=== PATIENT | male | born 1985 | race Caucasian/White ===

== ENCOUNTER 2019-03-24 17:08 | Emergency (ER) | payer SELFPAY ==
[2019-03-24] MEDS ORDERED: PENICILLIN V POTASSIUM 250 MG TABLET PO ONE (18:23)
--- NOTE | 2019-03-24 18:24 | ER Document Report ---
HPI - HPI Time Seen by Provider: 03/24/19 18:07 Pain Level: 2 Context: Patient is a 34-year-old male who presents to the emergency department with a toothache to tooth #30. The patient has poor dentition and states that he has had teeth problems for the past 10 years. His toothache started yesterday. He states that he took some ibuprofen yesterday, but he has a history of stomach ulcers and he felt that the ibuprofen made his stomach worse. Patient states that the lidocaine that he was given before does not work. Patient states that usually antibiotics help him. - CONSTITUTIONAL Constitutional: REPORTS: Chills. DENIES: Fever - EENT Notes: Tooth pain to tooth #31 - RESPIRATORY Respiratory: DENIES: Trouble Breathing, Coughing - GASTROINTESTINAL Gastrointestinal: DENIES: Nausea, Patient vomiting - MUSCULOSKELETAL Musculoskeletal: DENIES: Extremity pain - DERM Skin Color: Normal Skin Problems: None Past Medical History - General Information source: Patient - Social History Smoking Status: Current Every Day Smoker Chew tobacco use (# tins/day): No Frequency of alcohol use: None Drug Abuse: None Family History: Reviewed & Not Pertinent Patient has suicidal ideation: No Patient has homicidal ideation: No Neurological Medical History: Reports: Hx Migraine Renal/ Medical History: Denies: Hx Peritoneal Dialysis GI Medical History: Reports: Hx Ulcer Vertical Provider Document - CONSTITUTIONAL Agree With Documented VS: Yes Exam Limitations: No Limitations General Appearance: No Apparent Distress - INFECTION CONTROL TRAVEL OUTSIDE OF THE [place] IN LAST 30 DAYS: No - HEENT HEENT: Atraumatic, Normocephalic, PERRLA Mouth Diagram: 1 - dental carry noted. - RESPIRATORY Respiratory: Breath Sounds Normal, No Respiratory Distress - CARDIOVASCULAR Cardiovascular: Regular Rate, Regular Rhythm - MUSCULOSKELETAL/EXTREMETIES Musculoskeletal/Extremeties: FROM - NEURO Level of Consciousness: Awake, Alert, Appropriate Motor/Sensory: No Motor Deficit, No Sensory Deficit - DERM Integumentary: Warm, Dry, No Rash Course - Re-evaluation Re-evalutation: 03/24/19 18:24 Patient's physical exam and history is most consistent with a infected tooth. Patient is able to swallow, no facial swelling noted, airways pain, vital signs are normal. I do not suspect Rob's angina, peritonsilar abscess, or airway obstruction. The patient will be started on oral antibiotics. I have given the patient education on their antibiotics. Patient was given instructions to follow-up with a dentist this week. Return precautions were given. Verbal discharge instructions were given. Patient verbalized understanding. Patient is stable for discharge. - Vital Signs Vital signs: Temp Pulse Resp BP Pulse Ox 98.1 F 76 18 144/86 H 97 03/24/19 17:12 03/24/19 17:12 03/24/19 17:12 03/24/19 17:12 03/24/19 17:12 Discharge - Discharge Clinical Impression: Toothache Condition: Stable Disposition: HOME, SELF-CARE Instructions: Penicillin V K ([facility]), Toothache ([facility]) Additional Instructions: You have been seen in the emergency department for a toothache. You may take Tylenol 1000 mg every 6 hours as needed for the pain. You have also been pres cribed antibiotics. Please take the antibiotics as prescribed, even if you start to feel better. If you develop a fever greater than 100.4 F, or have any symptoms that are worrisome to you, please return to the emergency department. Please follow-up with a dentist this week in regards to your visit. Prescriptions: Penicillin V Potassium [Penicillin Vk 250 mg Tablet] 500 mg PO BID #40 tablet Referrals: SIMÓN DUTTON MD [Primary Care Provider] - Follow up as needed
[2019-03-24 18:33] VITALS: BP 136/90
== END 2019-03-24 18:32 | disposition home or self-care (01) ==
LOC: ER 17:08
DX: K02.9 Dental caries, unspecified (principal); K08.89 Other specified disorders of teeth and supporting structures; F17.200 Nicotine dependence, unspecified, uncomplicated; Z87.11 Personal history of peptic ulcer disease
CPT/HCPCS: 99282

== ENCOUNTER 2019-04-08 02:21 | Emergency (ER) | payer SELFPAY ==
[2019-04-08] MEDS ORDERED: BESIFLOXACIN HCL 0.6% OPH SUSP 5 ML BOTTLE OS ONE (03:23)
[2019-04-08] MEDS ORDERED: HYDROCODONE/ACETAMINOPHEN 5-325 MG (6 TAB/ER DISP) PO PRN (03:24)
[2019-04-08] MEDS ORDERED: BESIFLOXACIN HCL 0.6% OPH SUSP 5 ML BOTTLE ONE (03:41)
--- NOTE | 2019-04-08 04:04 | ER Document Report ---
ED ENT - General Chief Complaint: Foreign Body in Eye Stated Complaint: LEFT EYE PAIN Time Seen by Provider: 04/08/19 03:09 Notes: Patient is a 34-year-old male that comes to the emergency department for chief complaint of left eye pain. He states he was cutting concrete board when a piece of something flew into his eye. He states he flushed his eye out thoroughly but he still has a sensation of foreign body and a lot of pain in the left eye. He denies visual loss. He wears contacts, he states he is not wearing them now. He denies any other complaints. TRAVEL OUTSIDE OF THE [place] IN LAST 30 DAYS: No - Related Data Allergies/Adverse Reactions: No Known Allergies Allergy (Verified 03/24/19 17:10) Past Medical History - General Information source: Patient - Social History Smoking Status: Never Smoker Drug Abuse: None Lives with: Family Family History: Reviewed & Not Pertinent Patient has suicidal ideation: No Patient has homicidal ideation: No Neurological Medical History: Reports: Hx Migraine Renal/ Medical History: Denies: Hx Peritoneal Dialysis GI Medical History: Reports: Hx Ulcer - Immunizations Hx Diphtheria, Pertussis, Tetanus Vaccination: Yes Review of Systems - Review of Systems Constitutional: No symptoms reported EENT: See HPI Cardiovascular: No symptoms reported Respiratory: No symptoms reported Gastrointestinal: No symptoms reported Genitourinary: No symptoms reported Male Genitourinary: No symptoms reported Musculoskeletal: No symptoms reported Skin: No symptoms reported Hematologic/Lymphatic: No symptoms reported Neurological/Psychological: No symptoms reported Physical Exam - Vital signs Vitals: Temp Pulse Resp BP Pulse Ox 97.9 F 64 16 121/79 97 04/08/19 02:56 04/08/19 02:56 04/08/19 02:56 04/08/19 02:56 04/08/19 02:56 - Notes Notes: GENERAL: Alert, interacts well. Holding hand over his left eye and appears somewhat uncomfortable. HEAD: Normocephalic, atraumatic. EYES: Pupils equal, round, and reactive to light. Extraocular movements intact. Sclera of the left eye is mildly injected. Eyelids are normal. Eyelashes are normal. No discharge. No superficial foreign body, negative Kaleigh sign. There is a tiny corneal abrasion in the left upper outer quadrant of the left eye. Unremarkable otherwise. Right eye is normal. ENT: Oral mucosa moist, tongue midline. Oropharynx unremarkable. Airway patent. Nares patent, no nasal septal hematoma LUNGS: Clear to auscultation bilaterally, no wheezes, rales, or rhonchi. No respiratory distress. HEART: Regular rate and rhythm. No murmur ABDOMEN: Soft, non-tender. Non-distended. EXTREMITIES: Moves all 4 extremities spontaneously. No edema, normal radial and dorsalis pedis pulses bilaterally. No cyanosis. BACK: no cervical, thoracic, lumbar midline tenderness. No saddle anesthesia, normal distal neurovascular exam. NEUROLOGICAL: Alert and oriented x3. Normal speech. Cranial nerves II through XII grossly intact. PSYCH: Normal affect, normal mood. SKIN: Warm, dry, normal turgor. No rashes or lesions noted. Course - Re-evaluation Re-evalutation: There is no foreign body seen on physical examination. Patient has a tiny corneal abrasion, no other concerning findings noted. No visual loss. Asymptomatic after tetracaine drops. Because of patient's contact use he will be placed on Besivance. Patient states he actually has an casting chipper that he sees and he already called earlier today and has a follow-up appointment in 2 days. He states he will follow-up with them. Discussed return precautions. Patient states understanding and agreement. - Vital Signs Vital signs: Temp Pulse Resp BP Pulse Ox 98.4 F 74 15 154/78 H 97 04/08/19 04:17 04/08/19 04:17 04/08/19 04:17 04/08/19 04:17 04/08/19 02:56 Discharge - Discharge Clinical Impression: Left eye pain Condition: Stable Disposition: HOME, SELF-CARE Instructions: Oral Narcotic Medication ([facility]) Additional Instructions: Your evaluation is consistent with a corneal abrasion. No foreign body is seen. Take the eyedrops as prescribed, 1 drop 3 times a day for 1 week. Follow-up with your casting chipper as we discussed. Return if you worsen including loss of vision, swelling of the eye, severely increased pain, discolored discharge, or any other concerning symptoms. Forms: Return to Work
[2019-04-08] MEDS ORDERED: TETRACAINE HCL 0.5% OPH SOLN 4 ML OS ONE (04:10)
[2019-04-08 04:20] VITALS: BP 154/78
== END 2019-04-08 04:17 | disposition home or self-care (01) ==
LOC: ER 02:21
DX: H57.12 Ocular pain, left eye (principal)
CPT/HCPCS: 99283; J3490

== ENCOUNTER 2020-04-25 02:08 | Emergency (ER) | payer MEDICAID ==
[2020-04-25 03:05] LABS: ABSOLUTE EOSINOPHILS # (AUTO) 0.2 10^3/uL (0.0-0.6); ABSOLUTE LYMPHOCYTES (AUTO) 3.5 10^3/uL (0.5-4.7); ABSOLUTE NEUT (AUTO) 7.1 10^3/uL (1.7-8.2); BASOPHILS % (AUTO) 0.4 % (0-2); EOSINOPHILS % (AUTO) 1.4 % (0-6); HEMATOCRIT 44.9 % (37.9-51.0); HEMOGLOBIN 15.8 g/dL (13.5-17.0); LYMPHOCYTES % (AUTO) 29.7 % (13-45); MEAN CORPUSCULAR HEMOGLOBIN 31.4 pg (27.0-33.4); MEAN CORPUSCULAR HGB CONC 35.2 g/dL (32.0-36.0); MEAN CORPUSCULAR VOLUME 89 fl (80-97); MONOCYTES % (AUTO) 8.2 % (3-13); PLATELET COUNT 286 10^3/uL (150-450); RED BLOOD COUNT 5.04 10^6/uL (4.35-5.55); SEGMENTED NEUTROPHILS % (AUTO) 60.3 % (42-78); TOTAL CELLS COUNTED % (AUTO) 100 %; WHITE BLOOD COUNT 11.7 10^3/uL (4.0-10.5)
[2020-04-25 03:18] LABS: ALBUMIN 4.3 g/dL (3.5-5.0); ALKALINE PHOSPHATASE 55 U/L (38-126); ANION GAP 10 (5-19); ASPARTATE AMINO TRANSFERASE 22 U/L (17-59); BILIRUBIN,DIRECT 0.3 mg/dL (0.0-0.4); BILIRUBIN,TOTAL 0.4 mg/dL (0.2-1.3); BLOOD UREA NITROGEN 11 mg/dL (7-20); CALCIUM 9.6 mg/dL (8.4-10.2); CARBON DIOXIDE 24 mmol/L (22-30); CHLORIDE 104 mmol/L (98-107); CREATINE KINASE 92 U/L (55-170); GLUCOSE 140 mg/dL (75-110); TOTAL PROTEIN 6.6 g/dL (6.3-8.2)
[2020-04-25 03:25] LABS: INTERNATIONAL RATION (INR) 1.01; PROTHROMBIN TIME 13.5 SEC (11.4-15.4)
[2020-04-25 03:57] LABS: CREATINE KINASE MB 0.43 ng/mL (<4.55)
[2020-04-25 03:58] LABS: TROPONIN I < 0.012 ng/mL
[2020-04-25] MEDS ORDERED: MECLIZINE HCL 25 MG TABLET PO ONE (04:18)
--- NOTE | 2020-04-25 04:20 | ER Document Report ---
ED General - General Chief Complaint: Dizziness Stated Complaint: HEADACHE,NAUSEA,DIZZINESS Time Seen by Provider: 04/25/20 03:59 Primary Care Provider: TRISHA JAMES DO [ASSOCIATE] - Follow up as needed HELENA POOL MD [COMMUNITY BASED STAFF] - 04/29/20 Notes: Patient is a 35-year-old male who comes emergency department for chief complaint of an episode of dizziness. Patient states that he was standing folding close a fter he got home from work and he suddenly started feeling like he was spinning around in a [place]. He states he sat down and he continued to feel like he was spinning for a few minutes but then this past. Patient states that he got up and immediately started feeling like he was spinning around again, patient states he broke out into a sweat and that is when he became concerned. He denies a headache, chest pain, shortness of breath, fever, vomiting, or any injury. Patient states that he used to get the symptoms all the time for a few months and it finally resolved on its own after he had been evaluated several times and never received a diagnosis. Patient takes no daily medications, den ies recreational drugs, denies any past medical history otherwise. He states the symptoms actually past and he currently has no symptoms. TRAVEL OUTSIDE OF THE [place] IN LAST 30 DAYS: No - Related Data Allergies/Adverse Reactions: No Known Allergies Allergy (Verified 03/24/19 17:10) Past Medical History - General Information source: Patient - Social History Smoking Status: Current Every Day Smoker Smoking Education Provided: Yes - <3 min Frequency of alcohol use: None Drug Abuse: None Lives with: Family Family History: Reviewed & Not Pertinent Neurological Medical History: Reports: Hx Migraine Renal/ Medical History: Denies: Hx Peritoneal Dialysis GI Medical History: Reports: Hx Ulcer - Immunizations Hx Diphtheria, Pertussis, Tetanus Vaccination: Yes Review of Systems - Review of Systems Constitutional: See HPI EENT: No symptoms reported Cardiovascular: No symptoms reported Respiratory: No symptoms reported Gastrointestinal: No symptoms reported Genitourinary: No symptoms reported Male Genitourinary: No symptoms reported Musculoskeletal: No symptoms reported Skin: No symptoms reported Hematologic/Lymphatic: No symptoms reported Neurological/Psychological: See HPI Physical Exam - Vital signs Vitals: Temp Pulse Resp BP Pulse Ox 98.5 F 64 18 122/74 98 04/25/20 02:22 04/25/20 02:22 04/25/20 02:22 04/25/20 02:22 04/25/20 02:22 - Notes Notes: GENERAL: Alert, interacts well. No acute distress. HEAD: Normocephalic, atraumatic. EYES: Pupils equal, round, and reactive to light. Extraocular movements intact. No nystagmus ENT: Oral mucosa moist, tongue midline. Oropharynx unremarkable. Airway patent. Nares patent, sinuses non-tender, ear canals unremarkable, TM's intact. NECK: Full range of motion. Supple. Trachea midline. No lymphadenopathy. LUNGS: Clear to auscultation bilaterally, no wheezes, rales, or rhonchi. No respiratory distress. Non-tender chest wall. HEART: Regular rate and rhythm. No murmur ABDOMEN: Soft, non-tender. Non-distended. EXTREMITIES: Moves all 4 extremities spontaneously. No edema, normal radial and dorsalis pedis pulses bilaterally. No cyanosis. BACK: no cervical, thoracic, lumbar midline tenderness. No saddle anesthesia, normal distal neurovascular exam. Moves all extremities in full range of motion. NEUROLOGICAL: Alert and oriented x3. Normal speech. Cranial nerves II through XII grossly intact. Strength 5/5 in all extremities. PSYCH: Normal affect, normal mood. SKIN: Warm, dry, normal turgor. No rashes or lesions noted. Course - Re-evaluation Re-evalutation: Patient describes vertigo up with his symptoms, he has had similar episodes in the past, he did have diaphoresis but he did not have chest pain, he did not pass out, he did not have shortness of breath or vomiting. He did not have a headache and he does not currently have one now. Patient has no neurological deficits on exam, no nystagmus. I did review work-up from triage protocol and this shows unremarkable CBC and chemistry, unremarkable EKG. Patient reevaluated, still has no symptoms. Patient states he is worried his dizziness/vertigo will come back like it did in the past. Discussed details, options, patient placed on Antivert, discussed ENT follow-up, discussed return precautions in detail, patient states appreciation and agreement. Stable and well-appearing at time of discharge. - Vital Signs Vital signs: Temp Pulse Resp BP Pulse Ox 97.4 F 66 16 120/82 99 04/25/20 04:54 04/25/20 04:54 04/25/20 04:54 04/25/20 04:54 04/25/20 04:54 - Laboratory Result Diagrams: 04/25/20 02:50 04/25/20 02:50 Laboratory results interpreted by me: 04/25/20 04/25/20 02:50 02:50 WBC 11.7 H Glucose 140 H - EKG Interpretation by Me Additional EKG results interpreted by me: EKG shows sinus rhythm at a rate of 62, QTc of 439, normal axis, no T wave inversions or ST segment changes in consecutive leads. Discharge - Discharge Clinical Impression: Dizziness Condition: Stable Disposition: HOME, SELF-CARE Additional Instructions: Your evaluation is most consistent with vertigo, probably from labyrinthitis as we discussed. Your work-up and evaluation tonight are reassuring. You also may have almost passed out (near syncope). This can be normal although it does require additional follow-up and evaluation. See primary care referral, call closely for follow-up, see ENT referral (Dr. James) because of your history of vertigo and the return of your symptoms tonight. Take the meclizine as p rescribed to completion. Return if you worsen including severe headache, vomiting, passing out, chest pain, fever, or any other concerning symptoms. Prescriptions: Meclizine HCl [Antivert 25 mg Tablet] 25 mg PO TID PRN #21 tablet PRN Reason: Referrals: HELENA POOL MD [COMMUNITY BASED STAFF] - 04/29/20 TRISHA JAMES DO [ASSOCIATE] - Follow up as needed
[2020-04-25 04:55] VITALS: BP 120/82
--- NOTE | 2020-04-25 12:43 | EKG REPORT ---
SEVERITY:- BORDERLINE ECG - SINUS RHYTHM : Confirmed by: Anders Fowler MD 25-Apr-2020 12:43:24
== END 2020-04-25 04:56 | disposition home or self-care (01) ==
LOC: ER 02:08
DX: R42 Dizziness and giddiness (principal); R51 Headache; R11.0 Nausea; F17.200 Nicotine dependence, unspecified, uncomplicated
CPT/HCPCS: 36415; 80053; 82550; 82553; 84484; 85025; 85610; 93005; 93010; 99284

== ENCOUNTER → 2020-05-13 | Outpatient (CLI) | payer MEDICAID ==
--- NOTE | 2020-05-13 17:05 | RADIOLOGY REPORT (SQ) ---
EXAM DESCRIPTION: MRI HEAD COMBO IMAGES COMPLETED DATE/TIME: 05/13/2020 3:34 pm REASON FOR STUDY: R55 SYNCOPE AND COLLAPSE R55 SYNCOPE AND COLLAPSE. Migraine headache for 1-2 day s after passing out. Dizziness, loss of consciousness, lip numbness, syncope. Sharp pain at base of head. COMPARISON: None. TECHNIQUE: Multiplanar imaging includes noncontrasted T1, T2, FLAIR, diffusion with ADC map and post gadolinium contrast T1 sequences. Images stored on PACS. CONTRAST TYPE AND DOSE: 15 mL Prohance. RENAL FUNCTION: Not indicated. ACR Type II contrast agent associated with few, if any, unconfounded cases of NSF LIMITATIONS: None. FINDINGS: ANATOMY: No anomalies. Normal vascular flow voids. Pituitary fossa normal. CSF SPACES: Normal in size and contour. No hemorrhage. CEREBRUM: Sulci and gyri normal in size and contour. Normal white matter signal on FLAIR imaging. No evidence of hemorrhage, mass, or extraaxial fluid collection. No abnormal enhancement post contrast. POSTERIOR FOSSA: No signal alteration. No hemorrhage. No edema, masses, or mass effect. Internal hamitlon tory canals, cerebellopontine angles, mastoids normal. No enhancing lesions. No abnormal enhancement post contrast. DIFFUSION IMAGING: Negative for acute or subacute infarction. ORBITS: No masses. Globes normal. PARANASAL SINUSES: No fluid levels. Mucosa normal. OTHER: No other significant finding. IMPRESSION: NORMAL MRI OF THE BRAIN WITHOUT AND WITH INTRAVENOUS GADOLINIUM CONTRAST. EVIDENCE OF ACUTE STROKE: NO. TECHNICAL DOCUMENTATION: JOB ID: [id number]- All Rights Reserved Reading location - IP/workstation name: [email or web address]
== END ==
LOC: RAD 15:40
PROVIDERS: ATTEND Nurse Practitioner Family
DX: R55 Syncope and collapse (principal)
CPT/HCPCS: 70553; A9576